=== PATIENT | male | born 1955 | race Caucasian/White ===

== ENCOUNTER 2018-10-12 15:23 | Inpatient (IN) | payer MEDICARE ==
[2018-10-12] MEDS: LIDOCAINE 1%/EPI (MDV) 50 ML INJ INJ (16:00)
[2018-10-12 16:48] LABS: ADD MAN DIFF? NO
[2018-10-12 16:51] LABS: BASOPHIL # 0.1 10^3/ul (0.0-0.1); BASOPHILS % 0.5 % (0.0-2.0); EOSINOPHILS # 0.1 10^3/ul (0.0-0.5); EOSINOPHILS % 0.3 % (0.0-7.0); HEMATOCRIT 31.2 % (42.0-52.0); LYMPHOCYTES # 1.5 10^3/ul (0.8-2.9); LYMPHOCYTES % 8.8 % (15.0-51.0); MEAN CORPUSCULAR HEMOGLOBIN 29.2 pg (29.0-33.0); MEAN CORPUSCULAR HGB CONC 32.1 g/dl (32.0-37.0); MEAN PLATELET VOLUME 9.1 fl (7.4-10.4); MONOCYTE # 1.1 10^3/ul (0.3-0.9); MONOCYTES % 6.7 % (0.0-11.0); NEUTROPHIL # 13.3 10^3/ul (1.6-7.5); NEUTROPHILS % 79.7 % (39.0-77.0); NUCLEATED RED BLOOD CELLS% 0.1 /100WBC (0.0-0.0); PLATELET COUNT 345 10^3/UL (140-415); RED BLOOD COUNT 3.43 10^6/ul (4.70-6.10)
[2018-10-12 16:51] LABS: WHITE BLOOD COUNT 16.6 10^3/ul (4.8-10.8)
[2018-10-12] MEDS: DIPHTH/TET/ACEL PERTUSS (ADULT) 0.5 ML VIAL IM* (16:51)
[2018-10-12] MEDS: LIDOCAINE 1%/EPI 30 ML INJ INJ (17:00)
[2018-10-12 17:08] LABS: ANION GAP 6 (5-13); BLOOD UREA NITROGEN 17 mg/dl (7-20); CALCIUM 8.4 mg/dl (8.4-10.2); CARBON DIOXIDE 25 mmol/L (21-31); CHLORIDE 106 mmol/L (97-110); CREATININE 1.13 mg/dl (0.61-1.24); Estimated GFR > 60 mL/min (>60); GLUCOSE 109 mg/dl (70-220); POTASSIUM 4.2 mmol/L (3.5-5.1); SODIUM 137 mmol/L (135-144)
[2018-10-12 17:10] LABS: INR 0.95; PROTIME 12.8 Sec (11.9-14.9)
[2018-10-12] MEDS: morphine 4 MG/ML VIAL IV ×2 (17:38→17:42)
[2018-10-12] MEDS: ONDANSETRON 4 MG INJ IV (17:38)
[2018-10-12] MEDS ORDERED: HYDROmorphONE 1 MG/ML SYG (17:40)
[2018-10-12] MEDS: IOHEXOL 100 ML (18:04)
[2018-10-12] MEDS: SOD CHLORIDE 0.9% 100 ML (18:04)
[2018-10-12] MEDS: HYDROmorphONE 2 MG/ML SYG IV (19:05)
[2018-10-12] MEDS: HYDROmorphONE 0.5 MG/0.5 ML SYG IV (20:09)
[2018-10-12] MEDS ORDERED: ACETAMINOPHEN 325 MG TAB PO (20:30)
[2018-10-12] MEDS ORDERED: ONDANSETRON 4 MG INJ IV (20:30)
[2018-10-13] MEDS: HYDROCODONE/APAP (5/325) TAB PO (00:38)
[2018-10-13] MEDS: HYDROmorphONE 1 MG/ML SYG IV ×7 (01:42→22:22)
[2018-10-13] MEDS ORDERED: ACETAMINOPHEN 325 MG TAB PO (02:00)
[2018-10-13] MEDS ORDERED: NACL 0.9% 3 ML SYG IV (02:00)
[2018-10-13] MEDS ORDERED: ALBUTEROL/IPRATROPIUM (NEB) 3 ML AMP HHN (02:00)
[2018-10-13] MEDS ORDERED: ONDANSETRON 4 MG INJ IV (02:00)
[2018-10-13] MEDS ORDERED: NON-FORMULARY/PATIENT OWN MED (Temazepam* 30 MG) PO (02:00)
[2018-10-13] MEDS: ZOLPIDEM 5 MG TAB PO ×2 (03:06→22:22)
[2018-10-13 04:58] LABS: ADD MAN DIFF? NO
[2018-10-13 05:03] LABS: BASOPHILS % 0.2 % (0.0-2.0); EOSINOPHILS % 0.3 % (0.0-7.0); HEMATOCRIT 26.6 % (42.0-52.0); HEMOGLOBIN 8.4 g/dl (14.0-18.0); LYMPHOCYTES # 1.6 10^3/ul (0.8-2.9); LYMPHOCYTES % 15.6 % (15.0-51.0); MEAN CORPUSCULAR HEMOGLOBIN 28.8 pg (29.0-33.0); MEAN CORPUSCULAR HGB CONC 31.6 g/dl (32.0-37.0); MEAN CORPUSCULAR VOLUME 91.1 fl (82.0-101.0); MEAN PLATELET VOLUME 9.5 fl (7.4-10.4); MONOCYTES % 9.6 % (0.0-11.0); NEUTROPHIL # 7.5 10^3/ul (1.6-7.5); NEUTROPHILS % 71.4 % (39.0-77.0); NUCLEATED RED BLOOD CELLS% 0.2 /100WBC (0.0-0.0); PLATELET COUNT 307 10^3/UL (140-415); RED BLOOD COUNT 2.92 10^6/ul (4.70-6.10); RED CELL DISTRIBUTION WIDTH 17.2 % (11.5-14.5)
[2018-10-13 05:03] LABS: WHITE BLOOD COUNT 10.5 10^3/ul (4.8-10.8)
[2018-10-13 05:27] LABS: ALANINE AMINOTRANSFERASE 33 IU/L (13-69); ALBUMIN 3.1 g/dl (3.3-4.9); ALBUMIN/GLOBULIN RATIO 1.14; ALKALINE PHOSPHATASE 93 IU/L (42-121); ANION GAP 5 (5-13); ASPARTATE AMINO TRANSFERASE 35 IU/L (15-46); BLOOD UREA NITROGEN 16 mg/dl (7-20); CALCIUM 8.1 mg/dl (8.4-10.2); CARBON DIOXIDE 26 mmol/L (21-31); CHLORIDE 103 mmol/L (97-110); CREATININE 1.06 mg/dl (0.61-1.24); Estimated GFR > 60 mL/min (>60); GLUCOSE 131 mg/dl (70-220); MAGNESIUM 1.9 mg/dl (1.7-2.5); PHOSPHORUS 2.7 mg/dl (2.5-4.9); POTASSIUM 4.1 mmol/L (3.5-5.1); SODIUM 134 mmol/L (135-144); TOTAL PROTEIN 5.8 g/dl (6.1-8.1)
[2018-10-13] MEDS ORDERED: LOSARTAN 50 MG TAB PO (07:30)
[2018-10-13] MEDS: OXYCODONE/ACETAMINOPHEN (10/325) TAB PO (07:50)
[2018-10-13] MEDS: LOSARTAN 50 MG TAB PO (07:50)
[2018-10-13] MEDS: traZODone 50 MG TAB PO (08:57)
[2018-10-13] MEDS: TRIMETHOPRIM/SULFAMETHOX (DS) TAB PO ×2 (08:57→20:12)
[2018-10-13] MEDS: HEPARIN 5,000 UNIT/1 ML VIAL SC (08:59)
[2018-10-13] MEDS ORDERED: TRIMETHOPRIM/SULFAMETHOX (DS) TAB PO (09:00)
[2018-10-13] MEDS ORDERED: DOCUSATE SODIUM 100 MG CAP PO (12:00)
[2018-10-13] MEDS: HYDROCODONE/APAP (10/325) TAB PO ×2 (13:20→18:25)
[2018-10-14] MEDS: HYDROmorphONE 1 MG/ML SYG IV ×7 (01:13→20:29)
[2018-10-14 05:33] LABS: ADD MAN DIFF? NO
[2018-10-14 05:38] LABS: BASOPHILS % 0.3 % (0.0-2.0); EOSINOPHILS # 0.2 10^3/ul (0.0-0.5); EOSINOPHILS % 2.7 % (0.0-7.0); HEMATOCRIT 25.1 % (42.0-52.0); HEMOGLOBIN 7.8 g/dl (14.0-18.0); LYMPHOCYTES % 12.4 % (15.0-51.0); MEAN CORPUSCULAR HEMOGLOBIN 28.9 pg (29.0-33.0); MEAN CORPUSCULAR HGB CONC 31.1 g/dl (32.0-37.0); MEAN PLATELET VOLUME 9.6 fl (7.4-10.4); MONOCYTE # 0.6 10^3/ul (0.3-0.9); MONOCYTES % 7.9 % (0.0-11.0); NEUTROPHIL # 5.6 10^3/ul (1.6-7.5); NEUTROPHILS % 72.3 % (39.0-77.0); NUCLEATED RED BLOOD CELLS% 0.4 /100WBC (0.0-0.0); PLATELET COUNT 259 10^3/UL (140-415); RED CELL DISTRIBUTION WIDTH 17.1 % (11.5-14.5)
[2018-10-14 05:38] LABS: WHITE BLOOD COUNT 7.7 10^3/ul (4.8-10.8)
[2018-10-14 05:52] LABS: HEMOGLOBIN A1C 6.1 % (0-5.9)
[2018-10-14 06:43] LABS: ANION GAP 3 (5-13); BLOOD UREA NITROGEN 17 mg/dl (7-20); CALCIUM 7.5 mg/dl (8.4-10.2); CARBON DIOXIDE 28 mmol/L (21-31); CHLORIDE 98 mmol/L (97-110); CREATININE 1.33 mg/dl (0.61-1.24); Estimated GFR 54 mL/min (>60); GLUCOSE 98 mg/dl (70-220); MAGNESIUM 1.9 mg/dl (1.7-2.5); PHOSPHORUS 3.9 mg/dl (2.5-4.9); POTASSIUM 4.4 mmol/L (3.5-5.1); SODIUM 129 mmol/L (135-144)
[2018-10-14] MEDS: FAMOTIDINE 20 MG TAB PO (08:36)
[2018-10-14] MEDS: LOSARTAN 50 MG TAB PO (08:36)
[2018-10-14] MEDS: TRIMETHOPRIM/SULFAMETHOX (DS) TAB PO ×2 (08:36→20:28)
[2018-10-14] MEDS: HYDROCODONE/APAP (10/325) TAB PO ×3 (10:15→18:24)
[2018-10-14] MEDS: ENOXAPARIN 40 MG/0.4 ML SYG SC (11:18)
[2018-10-14] MEDS ORDERED: BISACODYL 10 MG SUPP PR (15:00)
[2018-10-14] MEDS: DOCUSATE SODIUM 100 MG CAP PO (20:28)
[2018-10-15] MEDS: HYDROmorphONE 1 MG/ML SYG IV ×6 (01:04→21:35)
[2018-10-15 05:21] LABS: ADD MAN DIFF? NO
[2018-10-15 05:32] LABS: WHITE BLOOD COUNT 7.4 10^3/ul (4.8-10.8)
[2018-10-15 05:32] LABS: ABNORMAL IP MESSAGE 1; BASOPHILS % 0.3 % (0.0-2.0); EOSINOPHILS # 0.2 10^3/ul (0.0-0.5); HEMATOCRIT 21.1 % (42.0-52.0); LYMPHOCYTES # 0.8 10^3/ul (0.8-2.9); LYMPHOCYTES % 10.1 % (15.0-51.0); MEAN CORPUSCULAR HEMOGLOBIN 29.6 pg (29.0-33.0); MEAN CORPUSCULAR HGB CONC 31.8 g/dl (32.0-37.0); MEAN CORPUSCULAR VOLUME 93.4 fl (82.0-101.0); MEAN PLATELET VOLUME 9.3 fl (7.4-10.4); MONOCYTE # 0.6 10^3/ul (0.3-0.9); MONOCYTES % 8.6 % (0.0-11.0); NEUTROPHIL # 5.5 10^3/ul (1.6-7.5); NEUTROPHILS % 74.4 % (39.0-77.0); NUCLEATED RED BLOOD CELLS% 0.3 /100WBC (0.0-0.0); PLATELET COUNT 211 10^3/UL (140-415); POSITIVE DIFF @See below; RED BLOOD COUNT 2.26 10^6/ul (4.70-6.10); RED CELL DISTRIBUTION WIDTH 16.7 % (11.5-14.5)
[2018-10-15 05:53] LABS: HEMOGLOBIN 6.7 g/dl (14.0-18.0)
[2018-10-15 06:04] LABS: ANION GAP 7 (5-13); BLOOD UREA NITROGEN 25 mg/dl (7-20); CALCIUM 7.2 mg/dl (8.4-10.2); CARBON DIOXIDE 26 mmol/L (21-31); CHLORIDE 96 mmol/L (97-110); CREATININE 2.62 mg/dl (0.61-1.24); Estimated GFR 25 mL/min (>60); GLUCOSE 103 mg/dl (70-220); POTASSIUM 4.7 mmol/L (3.5-5.1); SODIUM 129 mmol/L (135-144)
[2018-10-15 06:05] LABS: TROPONIN-I 0.023 ng/ml (0.000-0.120)
[2018-10-15 06:11] LABS: PHOSPHORUS 4.8 mg/dl (2.5-4.9)
[2018-10-15 07:47] LABS: ANISOCYTOSIS 1+ (0-0); BAND NEUTROPHILS #M 0.4 10^3/ul (0.0-0.6); BAND NEUTROPHILS % (M) 6 % (0-4); EOSINOPHILS % (M) 3 % (0-7); GIANT THROMBO% (M) 1 % (0-0); LYMPHOCYTES #M 1.2 10^3/ul (0.8-2.9); LYMPHOCYTES % (M) 17 % (15-51); MONOCYTE #M 0.2 10^3/ul (0.3-0.9); MONOCYTES % (M) 3 % (0-11); MYELOCYTES % (M) 1 % (0-0); PLATELET ESTIMATE NORMAL; POLYCHROMASIA 2+ (0-0); SEG NEUT #M 5.2 10^3/ul (1.6-7.5); SEGMENTED NEUTROPHILS (M) % 70 % (39-77); SMUDGE%M 2 % (0-0)
[2018-10-15] MEDS: ENOXAPARIN 30 MG/0.3 ML SYG SC (09:00)
[2018-10-15] MEDS: TRIMETHOPRIM/SULFAMETHOX (DS) TAB PO ×2 (09:25→20:20)
[2018-10-15] MEDS: DOCUSATE SODIUM 100 MG CAP PO ×2 (09:25→20:19)
[2018-10-15] MEDS: FAMOTIDINE 20 MG TAB PO (09:25)
[2018-10-15] MEDS: HYDROCODONE/APAP (10/325) TAB PO (09:25)
[2018-10-15] MEDS: SOD CHLORIDE 0.9% 1,000 ML IV ×2 (09:26→19:30)
[2018-10-15] MEDS: SOD CHLORIDE 0.9% 250 ML IV* (10:08)
[2018-10-15 11:15] LABS: SODIUM,URINE RANDOM 22 mmol/L (30-90)
[2018-10-15 12:54] LABS: IMMEDIATE SPIN CROSSMATCH 1 2
[2018-10-15 19:42] LABS: CREATININE,URINE RANDOM 115.45 mg/dl (20-370)
[2018-10-15 19:44] LABS: ADD UMIC YES; UR ASCORBIC ACID NEGATIVE (NEGATIVE); UR BILIRUBIN (Dip) NEGATIVE (NEGATIVE); UR BLOOD (Dip) 2+ mg/dL (NEGATIVE); UR CLARITY CLEAR (CLEAR); UR COLOR YELLOW (YELLOW); UR GLUCOSE (Dip) NEGATIVE (NEGATIVE); UR KETONES (Dip) NEGATIVE (NEGATIVE); UR LEUKOCYTE ESTERASE (Dip) NEGATIVE Leu/ul (NEGATIVE); UR NITRITE (Dip) NEGATIVE (NEGATIVE); UR RBC 9 /HPF (0-5); UR TOTAL PROTEIN (Dip) NEGATIVE (NEGATIVE); UR UROBILINOGEN (Dip) 2+ mg/dL (NEGATIVE); UR WBC 4 /HPF (0-5)
[2018-10-15 19:45] LABS: SODIUM,URINE RANDOM < 13 mmol/L (30-90)
[2018-10-16] MEDS: HYDROmorphONE 1 MG/ML SYG IV ×8 (00:37→21:52)
[2018-10-16] MEDS: SOD CHLORIDE 0.9% 1,000 ML IV (00:40)
[2018-10-16 06:01] LABS: ADD MAN DIFF? NO
[2018-10-16 06:14] LABS: ABNORMAL IP MESSAGE 1; BASOPHILS % 0.3 % (0.0-2.0); EOSINOPHILS # 0.2 10^3/ul (0.0-0.5); EOSINOPHILS % 3.4 % (0.0-7.0); HEMATOCRIT 26.7 % (42.0-52.0); HEMOGLOBIN 8.6 g/dl (14.0-18.0); LYMPHOCYTES # 0.5 10^3/ul (0.8-2.9); LYMPHOCYTES % 8.1 % (15.0-51.0); MEAN CORPUSCULAR HEMOGLOBIN 29.8 pg (29.0-33.0); MEAN CORPUSCULAR HGB CONC 32.2 g/dl (32.0-37.0); MEAN CORPUSCULAR VOLUME 92.4 fl (82.0-101.0); MEAN PLATELET VOLUME 9.2 fl (7.4-10.4); MONOCYTE # 0.5 10^3/ul (0.3-0.9); MONOCYTES % 7.9 % (0.0-11.0); NEUTROPHIL # 4.6 10^3/ul (1.6-7.5); NEUTROPHILS % 77.9 % (39.0-77.0); PLATELET COUNT 234 10^3/UL (140-415); POSITIVE DIFF @See below; RED BLOOD COUNT 2.89 10^6/ul (4.70-6.10); RED CELL DISTRIBUTION WIDTH 16.2 % (11.5-14.5)
[2018-10-16 06:40] LABS: IRON 24 ug/dl (35-150)
[2018-10-16 06:49] LABS: % IRON SATURATION 9 % SAT (22-52); TOTAL IRON BINDING CAPACITY 272 ug/dl (241-421)
[2018-10-16 07:14] LABS: ALANINE AMINOTRANSFERASE 32 IU/L (13-69); ALBUMIN 2.9 g/dl (3.3-4.9); ALBUMIN/GLOBULIN RATIO 1.11; ALKALINE PHOSPHATASE 92 IU/L (42-121); ANION GAP 3 (5-13); ASPARTATE AMINO TRANSFERASE 38 IU/L (15-46); BILIRUBIN,INDIRECT 0.9 mg/dl (0-1.1); BILIRUBIN,TOTAL 0.9 mg/dl (0.2-1.3); BLOOD UREA NITROGEN 26 mg/dl (7-20); CALCIUM 7.5 mg/dl (8.4-10.2); CARBON DIOXIDE 28 mmol/L (21-31); CHLORIDE 102 mmol/L (97-110); CREATININE 2.32 mg/dl (0.61-1.24); Estimated GFR 29 mL/min (>60); GLUCOSE 92 mg/dl (70-220); SODIUM 133 mmol/L (135-144); TOTAL PROTEIN 5.5 g/dl (6.1-8.1)
[2018-10-16 07:58] LABS: FERRITIN 67.2 ng/ml (11.1-264.0)
[2018-10-16] MEDS: FAMOTIDINE 20 MG TAB PO (08:38)
[2018-10-16] MEDS: TRIMETHOPRIM/SULFAMETHOX (DS) TAB PO ×2 (08:38→20:56)
[2018-10-16] MEDS: DOCUSATE SODIUM 100 MG CAP PO (08:38)
[2018-10-16] MEDS: BISACODYL (EC) 5 MG TAB PO (08:38)
[2018-10-16] MEDS: HYDROCODONE/APAP (10/325) TAB PO (08:39)
[2018-10-16] MEDS: ENOXAPARIN 30 MG/0.3 ML SYG SC (08:40)
[2018-10-16] MEDS ORDERED: OXYCODONE/ACETAMINOPHEN (5/325) TAB PO (09:30)
[2018-10-16] MEDS: OXYCODONE/ACETAMINOPHEN (10/325) TAB PO ×2 (10:28→15:03)
[2018-10-16] MEDS: SENNA/DOCUSATE NA (8.6MG/50MG) TAB PO ×2 (12:35→20:56)
[2018-10-16] MEDS: SOD FERRIC GLUC COMPLX 125 MG in SOD CHLORIDE 0.9% 100 ML IVPB (12:35)
[2018-10-16] MEDS: POLYETHYLENE GLYCOL 17 GM PACKET PO (12:35)
[2018-10-16] MEDS: ZOLPIDEM 5 MG TAB PO (23:01)
[2018-10-17] MEDS: HYDROmorphONE 1 MG/ML SYG IV ×6 (01:24→17:32)
[2018-10-17 05:03] LABS: ADD MAN DIFF? NO
[2018-10-17 05:11] LABS: ABNORMAL IP MESSAGE 1; BASOPHILS % 0.3 % (0.0-2.0); EOSINOPHILS # 0.2 10^3/ul (0.0-0.5); HEMATOCRIT 29.1 % (42.0-52.0); HEMOGLOBIN 9.3 g/dl (14.0-18.0); LYMPHOCYTES # 0.5 10^3/ul (0.8-2.9); LYMPHOCYTES % 8.8 % (15.0-51.0); MEAN CORPUSCULAR HEMOGLOBIN 29.1 pg (29.0-33.0); MEAN CORPUSCULAR VOLUME 90.9 fl (82.0-101.0); MEAN PLATELET VOLUME 8.8 fl (7.4-10.4); MONOCYTE # 0.5 10^3/ul (0.3-0.9); MONOCYTES % 7.8 % (0.0-11.0); NEUTROPHIL # 4.6 10^3/ul (1.6-7.5); NEUTROPHILS % 77.2 % (39.0-77.0); PLATELET COUNT 288 10^3/UL (140-415); POSITIVE DIFF @See below; RED CELL DISTRIBUTION WIDTH 16.4 % (11.5-14.5)
[2018-10-17 05:11] LABS: WHITE BLOOD COUNT 5.9 10^3/ul (4.8-10.8)
[2018-10-17 05:35] LABS: ANION GAP 4 (5-13); BLOOD UREA NITROGEN 19 mg/dl (7-20); CALCIUM 8.4 mg/dl (8.4-10.2); CARBON DIOXIDE 29 mmol/L (21-31); CHLORIDE 102 mmol/L (97-110); CREATININE 1.47 mg/dl (0.61-1.24); Estimated GFR 48 mL/min (>60); GLUCOSE 124 mg/dl (70-220); PHOSPHORUS 2.6 mg/dl (2.5-4.9); POTASSIUM 4.8 mmol/L (3.5-5.1); SODIUM 135 mmol/L (135-144)
[2018-10-17] MEDS ORDERED: LOSARTAN 50 MG TAB PO (07:30)
[2018-10-17] MEDS: SENNA/DOCUSATE NA (8.6MG/50MG) TAB PO (08:31)
[2018-10-17] MEDS: TRIMETHOPRIM/SULFAMETHOX (DS) TAB PO (08:31)
[2018-10-17] MEDS: FAMOTIDINE 20 MG TAB PO (08:32)
[2018-10-17] MEDS: POLYETHYLENE GLYCOL 17 GM PACKET PO (08:32)
[2018-10-17] MEDS: ENOXAPARIN 30 MG/0.3 ML SYG SC (08:34)
[2018-10-17] MEDS: OXYCODONE/ACETAMINOPHEN (10/325) TAB PO ×2 (12:40→16:42)
[2018-10-17] MEDS: SOD FERRIC GLUC COMPLX 125 MG in SOD CHLORIDE 0.9% 100 ML IVPB (12:40)
[2018-10-17 14:08] LABS: CREATININE, RANDOM URINE 108 mg/dL (20-320); MICROALBUMIN 1.9 mg/dL; MICROALBUMIN/CREATININE RATIO 18 (<30)
== END 2018-10-17 18:49 | DRG 552 ==
LOC: E/R 15:23 → MS1 20:17
PROC: 0HQ0XZZ Repair Scalp Skin, External Approach (ICD-10-PCS; principal; 2018-10-12)
PROC: 2W3FX1Z Immobilization of Left Hand using Splint (ICD-10-PCS; 2018-10-12)
PROC: 30233N1 Transfusion of Nonautologous Red Blood Cells into Peripheral Vein, Percutaneous Approach (ICD-10-PCS; 2018-10-15)
DX: S12.190A Other displaced fracture of second cervical vertebra, initial encounter for closed fracture (principal); S22.010A Wedge compression fracture of first thoracic vertebra, initial encounter for closed fracture; N17.9 Acute kidney failure, unspecified; E87.1 Hypo-osmolality and hyponatremia; Z68.41 Body mass index [BMI] 40.0-44.9, adult; E66.01 Morbid (severe) obesity due to excess calories; I10 Essential (primary) hypertension; M06.9 Rheumatoid arthritis, unspecified; D72.829 Elevated white blood cell count, unspecified; M25.561 Pain in right knee; S01.01XA Laceration without foreign body of scalp, initial encounter; Z96.651 Presence of right artificial knee joint; S62.651A Nondisplaced fracture of middle phalanx of left index finger, initial encounter for closed fracture; S62.515A Nondisplaced fracture of proximal phalanx of left thumb, initial encounter for closed fracture; R62.7 Adult failure to thrive; L08.89 Other specified local infections of the skin and subcutaneous tissue; D50.9 Iron deficiency anemia, unspecified; I89.0 Lymphedema, not elsewhere classified; Z87.11 Personal history of peptic ulcer disease; W10.8XXA Fall (on) (from) other stairs and steps, initial encounter
CPT/HCPCS: 36430; 70450; 70498; 71045; 72040; 72125; 72141; 73130-LT; 73562; 76775; 80048; 80053; 81001; 81003; 82043; 82306; 82728; 83036; 83540; 83735; 84100; 84155; 84300; 84443; 84484; 85025; 85610; 86850; 86900; 86901; 86920; 89190; 90471; 90715; 93005; 96374; 96375; 96376; 97110; 97163; 97165; 97530; 99285-25

== ENCOUNTER 2018-10-17 19:25 | Inpatient (IN) | payer MEDICARE ==
[2018-10-17] MEDS ORDERED: BISACODYL (EC) 5 MG TAB PO (21:30)
[2018-10-17] MEDS ORDERED: ACETAMINOPHEN 325 MG TAB PO (21:30)
[2018-10-17] MEDS ORDERED: BISACODYL 10 MG SUPP PR (21:30)
[2018-10-17] MEDS ORDERED: OXYCODONE/ACETAMINOPHEN (5/325) TAB PO (22:00)
[2018-10-17] MEDS: HYDROmorphONE 1 MG/ML SYG IV (22:18)
[2018-10-17] MEDS: SENNA/DOCUSATE NA (8.6MG/50MG) TAB PO (22:18)
[2018-10-17] MEDS: TRIMETHOPRIM/SULFAMETHOX (DS) TAB PO (22:18)
[2018-10-17 23:11] LABS: ADD UMIC YES; UR ASCORBIC ACID NEGATIVE (NEGATIVE); UR BILIRUBIN (Dip) NEGATIVE (NEGATIVE); UR BLOOD (Dip) NEGATIVE (NEGATIVE); UR CLARITY CLEAR (CLEAR); UR COLOR YELLOW (YELLOW); UR GLUCOSE (Dip) NEGATIVE (NEGATIVE); UR KETONES (Dip) NEGATIVE (NEGATIVE); UR LEUKOCYTE ESTERASE (Dip) TRACE Leu/ul (NEGATIVE); UR NITRITE (Dip) NEGATIVE (NEGATIVE); UR RBC 5 /HPF (0-5); UR SPECIFIC GRAVITY (Dip) 1.016 (1.003-1.030); UR TOTAL PROTEIN (Dip) NEGATIVE (NEGATIVE); UR UROBILINOGEN (Dip) 2+ mg/dL (NEGATIVE); UR WBC 3 /HPF (0-5)
[2018-10-18] MEDS: HYDROmorphONE 1 MG/ML SYG IV ×6 (01:48→22:27)
[2018-10-18] MEDS ORDERED: LACTULOSE 30ML CUP PO (04:00)
[2018-10-18] MEDS ORDERED: BISACODYL 10 MG SUPP PR (04:00)
[2018-10-18 06:28] LABS: ADD MAN DIFF? NO
[2018-10-18 06:36] LABS: BASOPHILS % 0.3 % (0.0-2.0); EOSINOPHILS # 0.3 10^3/ul (0.0-0.5); EOSINOPHILS % 5.2 % (0.0-7.0); HEMATOCRIT 31.2 % (42.0-52.0); LYMPHOCYTES # 0.7 10^3/ul (0.8-2.9); LYMPHOCYTES % 10.9 % (15.0-51.0); MEAN CORPUSCULAR HEMOGLOBIN 29.1 pg (29.0-33.0); MEAN CORPUSCULAR HGB CONC 32.1 g/dl (32.0-37.0); MEAN CORPUSCULAR VOLUME 90.7 fl (82.0-101.0); MEAN PLATELET VOLUME 8.7 fl (7.4-10.4); MONOCYTE # 0.6 10^3/ul (0.3-0.9); MONOCYTES % 10.2 % (0.0-11.0); NEUTROPHIL # 4.1 10^3/ul (1.6-7.5); NEUTROPHILS % 68.5 % (39.0-77.0); PLATELET COUNT 303 10^3/UL (140-415); RED BLOOD COUNT 3.44 10^6/ul (4.70-6.10); RED CELL DISTRIBUTION WIDTH 16.4 % (11.5-14.5)
[2018-10-18 06:53] LABS: ALANINE AMINOTRANSFERASE 25 IU/L (13-69); ALBUMIN 3.4 g/dl (3.3-4.9); ALBUMIN/GLOBULIN RATIO 1.13; ALKALINE PHOSPHATASE 114 IU/L (42-121); ANION GAP 4 (5-13); ASPARTATE AMINO TRANSFERASE 33 IU/L (15-46); BILIRUBIN,INDIRECT 1.1 mg/dl (0-1.1); BILIRUBIN,TOTAL 1.1 mg/dl (0.2-1.3); BLOOD UREA NITROGEN 15 mg/dl (7-20); CALCIUM 8.8 mg/dl (8.4-10.2); CARBON DIOXIDE 30 mmol/L (21-31); CHLORIDE 101 mmol/L (97-110); CREATININE 1.25 mg/dl (0.61-1.24); Estimated GFR 58 mL/min (>60); GLUCOSE 103 mg/dl (70-220); POTASSIUM 4.8 mmol/L (3.5-5.1); SODIUM 135 mmol/L (135-144); TOTAL PROTEIN 6.4 g/dl (6.1-8.1)
[2018-10-18] MEDS: SENNA/DOCUSATE NA (8.6MG/50MG) TAB PO ×2 (09:12→22:28)
[2018-10-18] MEDS: FAMOTIDINE 20 MG TAB PO (09:12)
[2018-10-18] MEDS: POLYETHYLENE GLYCOL 17 GM PACKET PO (09:12)
[2018-10-18] MEDS: TRIMETHOPRIM/SULFAMETHOX (DS) TAB PO ×2 (09:12→22:28)
[2018-10-18] MEDS: ENOXAPARIN 30 MG/0.3 ML SYG SC (09:20)
[2018-10-18] MEDS: SOD FERRIC GLUC COMPLX 125 MG in SOD CHLORIDE 0.9% 100 ML IVPB (13:49)
[2018-10-18] MEDS: METOPROLOL (XL) 25 MG TAB PO (14:43)
[2018-10-18] MEDS: ZOLPIDEM 5 MG TAB PO (23:00)
[2018-10-19] MEDS: HYDROmorphONE 1 MG/ML SYG IV ×4 (06:53→20:47)
[2018-10-19] MEDS: ENOXAPARIN 30 MG/0.3 ML SYG SC (08:51)
[2018-10-19] MEDS: SENNA/DOCUSATE NA (8.6MG/50MG) TAB PO ×2 (08:52→20:44)
[2018-10-19] MEDS: FAMOTIDINE 20 MG TAB PO (08:52)
[2018-10-19] MEDS: TRIMETHOPRIM/SULFAMETHOX (DS) TAB PO ×2 (08:53→20:44)
[2018-10-19] MEDS: METOPROLOL (XL) 25 MG TAB PO (08:53)
[2018-10-19] MEDS: POLYETHYLENE GLYCOL 17 GM PACKET PO (08:59)
[2018-10-19] MEDS: AMLODIPINE 5 MG TAB PO (09:21)
[2018-10-19] MEDS: MAGNESIUM HYDROXIDE 30ML CUP PO (09:21)
[2018-10-19] MEDS: SOD FERRIC GLUC COMPLX 125 MG in SOD CHLORIDE 0.9% 100 ML IVPB (12:54)
[2018-10-19] MEDS: MUPIROCIN 2% 22 GM OINT TOP ×2 (12:55→20:45)
[2018-10-20] MEDS: HYDROmorphONE 1 MG/ML SYG IV ×6 (00:18→23:20)
[2018-10-20] MEDS: ZOLPIDEM 5 MG TAB PO ×2 (00:47→21:57)
[2018-10-20] MEDS: FAMOTIDINE 20 MG TAB PO (08:08)
[2018-10-20] MEDS: TRIMETHOPRIM/SULFAMETHOX (DS) TAB PO ×2 (08:08→20:11)
[2018-10-20] MEDS: OXYCODONE/ACETAMINOPHEN (10/325) TAB PO ×2 (08:09→14:32)
[2018-10-20] MEDS: METOPROLOL (XL) 25 MG TAB PO (08:09)
[2018-10-20] MEDS: AMLODIPINE 5 MG TAB PO ×2 (08:09→11:17)
[2018-10-20] MEDS: SENNA/DOCUSATE NA (8.6MG/50MG) TAB PO ×2 (08:09→20:11)
[2018-10-20 08:12] LABS: ANION GAP 6 (5-13); BLOOD UREA NITROGEN 15 mg/dl (7-20); CALCIUM 8.6 mg/dl (8.4-10.2); CARBON DIOXIDE 28 mmol/L (21-31); CHLORIDE 103 mmol/L (97-110); CREATININE 1.12 mg/dl (0.61-1.24); Estimated GFR > 60 mL/min (>60); GLUCOSE 97 mg/dl (70-220); MAGNESIUM 1.9 mg/dl (1.7-2.5); PHOSPHORUS 3.5 mg/dl (2.5-4.9); POTASSIUM 4.3 mmol/L (3.5-5.1); SODIUM 137 mmol/L (135-144)
[2018-10-20] MEDS: ENOXAPARIN 30 MG/0.3 ML SYG SC (08:15)
[2018-10-20] MEDS: AMMONIUM LACTATE 12% 225 GM LOT TOP (08:20)
[2018-10-20] MEDS: CLOTRIMAZOLE 1% 30 GM CR TOP (08:20)
[2018-10-20] MEDS: MUPIROCIN 2% 22 GM OINT TOP ×2 (08:24→20:10)
[2018-10-20] MEDS: POLYETHYLENE GLYCOL 17 GM PACKET PO (08:25)
[2018-10-20] MEDS: SOD FERRIC GLUC COMPLX 125 MG in SOD CHLORIDE 0.9% 100 ML IVPB (14:30)
[2018-10-21] MEDS: HYDROmorphONE 1 MG/ML SYG IV ×6 (02:52→23:03)
[2018-10-21] MEDS: OXYCODONE/ACETAMINOPHEN (10/325) TAB PO (08:25)
[2018-10-21] MEDS: SENNA/DOCUSATE NA (8.6MG/50MG) TAB PO ×2 (08:56→21:55)
[2018-10-21] MEDS: AMLODIPINE 10 MG TAB PO (08:56)
[2018-10-21] MEDS: ENOXAPARIN 30 MG/0.3 ML SYG SC (08:56)
[2018-10-21] MEDS: FAMOTIDINE 20 MG TAB PO (08:56)
[2018-10-21] MEDS: TRIMETHOPRIM/SULFAMETHOX (DS) TAB PO ×2 (08:57→21:55)
[2018-10-21] MEDS: METOPROLOL (XL) 25 MG TAB PO (08:57)
[2018-10-21] MEDS: MUPIROCIN 2% 22 GM OINT TOP ×2 (08:57→21:55)
[2018-10-21] MEDS: POLYETHYLENE GLYCOL 17 GM PACKET PO (08:58)
[2018-10-21] MEDS: CLOTRIMAZOLE 1% 30 GM CR TOP (08:58)
[2018-10-21] MEDS: AMMONIUM LACTATE 12% 225 GM LOT TOP (08:58)
[2018-10-21] MEDS: predniSONE 2.5 MG TAB PO (17:28)
[2018-10-21] MEDS: ZOLPIDEM 5 MG TAB PO (21:55)
[2018-10-22] MEDS: ZOLPIDEM 5 MG TAB PO ×2 (01:00→21:29)
[2018-10-22] MEDS: OXYCODONE/ACETAMINOPHEN (10/325) TAB PO ×2 (01:01→14:46)
[2018-10-22] MEDS: HYDROmorphONE 1 MG/ML SYG IV ×7 (02:04→22:46)
[2018-10-22 06:54] LABS: ADD MAN DIFF? NO
[2018-10-22 06:57] LABS: ABNORMAL IP MESSAGE 1; BASOPHILS % 0.5 % (0.0-2.0); EOSINOPHILS # 0.4 10^3/ul (0.0-0.5); EOSINOPHILS % 4.6 % (0.0-7.0); HEMATOCRIT 29.8 % (42.0-52.0); HEMOGLOBIN 9.5 g/dl (14.0-18.0); LYMPHOCYTES # 1.2 10^3/ul (0.8-2.9); LYMPHOCYTES % 15.6 % (15.0-51.0); MEAN CORPUSCULAR HEMOGLOBIN 29.6 pg (29.0-33.0); MEAN CORPUSCULAR HGB CONC 31.9 g/dl (32.0-37.0); MEAN CORPUSCULAR VOLUME 92.8 fl (82.0-101.0); MEAN PLATELET VOLUME 8.5 fl (7.4-10.4); MONOCYTE # 0.7 10^3/ul (0.3-0.9); MONOCYTES % 8.5 % (0.0-11.0); NEUTROPHIL # 5.2 10^3/ul (1.6-7.5); NEUTROPHILS % 64.9 % (39.0-77.0); PLATELET COUNT 347 10^3/UL (140-415); POSITIVE DIFF @See below; RED BLOOD COUNT 3.21 10^6/ul (4.70-6.10); RED CELL DISTRIBUTION WIDTH 16.8 % (11.5-14.5)
[2018-10-22 07:29] LABS: ALANINE AMINOTRANSFERASE 38 IU/L (13-69); ALBUMIN 3.2 g/dl (3.3-4.9); ALKALINE PHOSPHATASE 133 IU/L (42-121); ANION GAP 8 (5-13); ASPARTATE AMINO TRANSFERASE 37 IU/L (15-46); BILIRUBIN,INDIRECT 0.7 mg/dl (0-1.1); BILIRUBIN,TOTAL 0.7 mg/dl (0.2-1.3); BLOOD UREA NITROGEN 21 mg/dl (7-20); CALCIUM 8.6 mg/dl (8.4-10.2); CARBON DIOXIDE 26 mmol/L (21-31); CHLORIDE 102 mmol/L (97-110); CREATININE 1.18 mg/dl (0.61-1.24); Estimated GFR > 60 mL/min (>60); GLUCOSE 98 mg/dl (70-220); SODIUM 136 mmol/L (135-144); TOTAL PROTEIN 6.4 g/dl (6.1-8.1)
[2018-10-22 08:14] LABS: ERYTHROCYTE SEDIMENTATION RATE 100 mm/Hr (0-20)
[2018-10-22] MEDS: POLYETHYLENE GLYCOL 17 GM PACKET PO (08:37)
[2018-10-22] MEDS: TRIMETHOPRIM/SULFAMETHOX (DS) TAB PO ×2 (08:38→21:29)
[2018-10-22] MEDS: ENOXAPARIN 30 MG/0.3 ML SYG SC (08:38)
[2018-10-22] MEDS: AMLODIPINE 10 MG TAB PO (08:38)
[2018-10-22] MEDS: FAMOTIDINE 20 MG TAB PO (08:38)
[2018-10-22] MEDS: predniSONE 2.5 MG TAB PO ×2 (08:38→16:32)
[2018-10-22] MEDS: MUPIROCIN 2% 22 GM OINT TOP ×2 (08:39→21:29)
[2018-10-22] MEDS: METOPROLOL (XL) 25 MG TAB PO (08:39)
[2018-10-22] MEDS: SENNA/DOCUSATE NA (8.6MG/50MG) TAB PO ×2 (08:39→21:00)
[2018-10-22] MEDS: CLOTRIMAZOLE 1% 30 GM CR TOP (08:39)
[2018-10-22] MEDS: AMMONIUM LACTATE 12% 225 GM LOT TOP (08:40)
[2018-10-22] MEDS: ERGOCALCIFEROL 50,000 UNIT CAP PO (10:16)
[2018-10-22] MEDS: SOD FERRIC GLUC COMPLX 125 MG in SOD CHLORIDE 0.9% 100 ML IVPB (12:37)
[2018-10-22] MEDS: MAGNESIUM HYDROXIDE 30ML CUP PO (16:44)
[2018-10-23] MEDS: HYDROmorphONE 1 MG/ML SYG IV ×4 (06:43→21:54)
[2018-10-23] MEDS: OXYCODONE/ACETAMINOPHEN (10/325) TAB PO ×2 (08:13→16:44)
[2018-10-23] MEDS: TRIMETHOPRIM/SULFAMETHOX (DS) TAB PO ×2 (08:30→21:33)
[2018-10-23] MEDS: predniSONE 2.5 MG TAB PO ×2 (08:30→16:43)
[2018-10-23] MEDS: FAMOTIDINE 20 MG TAB PO (08:30)
[2018-10-23] MEDS: AMLODIPINE 10 MG TAB PO (08:31)
[2018-10-23] MEDS: METOPROLOL (XL) 25 MG TAB PO (08:31)
[2018-10-23] MEDS: POLYETHYLENE GLYCOL 17 GM PACKET PO (08:31)
[2018-10-23] MEDS: SENNA/DOCUSATE NA (8.6MG/50MG) TAB PO ×2 (08:32→21:39)
[2018-10-23] MEDS: ENOXAPARIN 40 MG/0.4 ML SYG SC (09:27)
[2018-10-23] MEDS: MUPIROCIN 2% 22 GM OINT TOP ×2 (09:30→21:33)
[2018-10-23] MEDS: CLOTRIMAZOLE 1% 30 GM CR TOP (09:30)
[2018-10-23] MEDS: AMMONIUM LACTATE 12% 225 GM LOT TOP (09:31)
[2018-10-23] MEDS: SOD FERRIC GLUC COMPLX 125 MG in SOD CHLORIDE 0.9% 100 ML IVPB (14:02)
[2018-10-23] MEDS: [UNRECOGNIZED DRUG - REMARK] XX (16:58)
[2018-10-23] MEDS: ZOLPIDEM 5 MG TAB PO (21:33)
[2018-10-24] MEDS: HYDROmorphONE 1 MG/ML SYG IV ×7 (01:13→21:55)
[2018-10-24 06:57] LABS: ABNORMAL IP MESSAGE 1; HEMATOCRIT 31.1 % (42.0-52.0); HEMOGLOBIN 9.8 g/dl (14.0-18.0); MEAN CORPUSCULAR HEMOGLOBIN 29.6 pg (29.0-33.0); MEAN CORPUSCULAR HGB CONC 31.5 g/dl (32.0-37.0); MEAN PLATELET VOLUME 8.7 fl (7.4-10.4); NUCLEATED RED BLOOD CELLS% 0.3 /100WBC (0.0-0.0); PLATELET COUNT 449 10^3/UL (140-415); POSITIVE DIFF @See below; RED BLOOD COUNT 3.31 10^6/ul (4.70-6.10); RED CELL DISTRIBUTION WIDTH 16.8 % (11.5-14.5)
[2018-10-24 06:57] LABS: WHITE BLOOD COUNT 7.5 10^3/ul (4.8-10.8)
[2018-10-24 07:09] LABS: ADD MAN DIFF? YES
[2018-10-24] MEDS: POLYETHYLENE GLYCOL 17 GM PACKET PO ×2 (09:00→10:05)
[2018-10-24] MEDS: FAMOTIDINE 20 MG TAB PO (09:59)
[2018-10-24] MEDS: SENNA/DOCUSATE NA (8.6MG/50MG) TAB PO ×2 (09:59→21:20)
[2018-10-24] MEDS: predniSONE 2.5 MG TAB PO ×2 (10:00→18:53)
[2018-10-24] MEDS: TRIMETHOPRIM/SULFAMETHOX (DS) TAB PO ×2 (10:01→21:20)
[2018-10-24 10:02] LABS: ANISOCYTOSIS 1+ (0-0); BAND NEUTROPHILS #M 0.3 10^3/ul (0.0-0.6); BAND NEUTROPHILS % (M) 4 % (0-4); BASOPHILS % (M) 1 % (0-2); EOSINOPHILS % (M) 3 % (0-7); GIANT THROMBO% (M) 1 % (0-0); LYMPHOCYTES #M 0.8 10^3/ul (0.8-2.9); LYMPHOCYTES % (M) 11 % (15-51); MONOCYTE #M 0.6 10^3/ul (0.3-0.9); MONOCYTES % (M) 9 % (0-11); MYELOCYTES #M 0.3 10^3/ul (0.0-0.0); MYELOCYTES % (M) 4 % (0-0); PLATELET ESTIMATE NORMAL; POIKILOCYTOSIS 1+ (0-0); POLYCHROMASIA 3+ (0-0); REACTIVE LYMPHOCYTES #M 0.1 10^3/ul (0.0-0.0); REACTIVE LYMPHOCYTES% (M) 2 % (0-0); SEGMENTED NEUTROPHILS (M) % 66 % (39-77); SMUDGE%M 4 % (0-0)
[2018-10-24] MEDS: ENOXAPARIN 40 MG/0.4 ML SYG SC (10:04)
[2018-10-24] MEDS: AMLODIPINE 10 MG TAB PO (10:05)
[2018-10-24] MEDS: METOPROLOL (XL) 25 MG TAB PO (10:31)
[2018-10-24] MEDS: CLOTRIMAZOLE 1% 30 GM CR TOP (10:33)
[2018-10-24] MEDS: MUPIROCIN 2% 22 GM OINT TOP ×2 (10:33→21:21)
[2018-10-24] MEDS: AMMONIUM LACTATE 12% 225 GM LOT TOP (10:34)
[2018-10-24] MEDS: OXYCODONE/ACETAMINOPHEN (10/325) TAB PO (10:41)
[2018-10-24] MEDS: SOD FERRIC GLUC COMPLX 125 MG in SOD CHLORIDE 0.9% 100 ML IVPB (14:42)
[2018-10-24] MEDS: ZOLPIDEM 5 MG TAB PO ×2 (21:20→23:56)
[2018-10-25] MEDS: HYDROmorphONE 1 MG/ML SYG IV ×6 (01:04→21:34)
[2018-10-25 07:36] LABS: CREATININE 0.87 mg/dl (0.61-1.24)
[2018-10-25 07:36] LABS: BLOOD UREA NITROGEN 16 mg/dl (7-20)
[2018-10-25] MEDS: AMLODIPINE 10 MG TAB PO (08:40)
[2018-10-25] MEDS: FAMOTIDINE 20 MG TAB PO (08:40)
[2018-10-25] MEDS: predniSONE 2.5 MG TAB PO ×2 (08:41→17:27)
[2018-10-25] MEDS: TRIMETHOPRIM/SULFAMETHOX (DS) TAB PO ×2 (08:41→21:35)
[2018-10-25] MEDS: METOPROLOL (XL) 25 MG TAB PO (08:41)
[2018-10-25] MEDS: SENNA/DOCUSATE NA (8.6MG/50MG) TAB PO ×2 (08:41→21:35)
[2018-10-25] MEDS: POLYETHYLENE GLYCOL 17 GM PACKET PO ×2 (08:42→09:00)
[2018-10-25] MEDS: OXYCODONE/ACETAMINOPHEN (10/325) TAB PO ×2 (08:42→17:27)
[2018-10-25] MEDS: ENOXAPARIN 40 MG/0.4 ML SYG SC (08:48)
[2018-10-25] MEDS: AMMONIUM LACTATE 12% 225 GM LOT TOP (08:49)
[2018-10-25] MEDS: MUPIROCIN 2% 22 GM OINT TOP ×2 (08:49→21:34)
[2018-10-25] MEDS: CLOTRIMAZOLE 1% 30 GM CR TOP (08:49)
[2018-10-25] MEDS: NEOMYC/POLYMYX/BACIT 30 GM OINT TOP (21:34)
[2018-10-25] MEDS: DOCUSATE SODIUM 100 MG CAP PO (21:35)
[2018-10-25] MEDS: ZOLPIDEM 5 MG TAB PO (21:35)
[2018-10-26] MEDS: HYDROmorphONE 1 MG/ML SYG IV ×3 (00:50→08:43)
[2018-10-26] MEDS: ZOLPIDEM 5 MG TAB PO ×2 (01:39→22:28)
[2018-10-26] MEDS: ENOXAPARIN 40 MG/0.4 ML SYG SC (08:29)
[2018-10-26] MEDS: DOCUSATE SODIUM 100 MG CAP PO ×2 (08:30→21:19)
[2018-10-26] MEDS: TRIMETHOPRIM/SULFAMETHOX (DS) TAB PO ×2 (08:31→21:19)
[2018-10-26] MEDS: SENNA/DOCUSATE NA (8.6MG/50MG) TAB PO ×2 (08:32→21:19)
[2018-10-26] MEDS: predniSONE 2.5 MG TAB PO ×2 (08:32→16:33)
[2018-10-26] MEDS: FAMOTIDINE 20 MG TAB PO (08:33)
[2018-10-26] MEDS: POLYETHYLENE GLYCOL 17 GM PACKET PO (08:45)
[2018-10-26] MEDS: MUPIROCIN 2% 22 GM OINT TOP (08:50)
[2018-10-26] MEDS: NEOMYC/POLYMYX/BACIT 30 GM OINT TOP ×2 (08:52→21:21)
[2018-10-26] MEDS: AMMONIUM LACTATE 12% 225 GM LOT TOP (08:54)
[2018-10-26] MEDS: CLOTRIMAZOLE 1% 30 GM CR TOP (08:54)
[2018-10-26] MEDS: AMLODIPINE 10 MG TAB PO (10:42)
[2018-10-26] MEDS: METOPROLOL (XL) 25 MG TAB PO (10:42)
[2018-10-26] MEDS: HYDROmorphONE 0.5 MG/0.5 ML SYG IV ×4 (12:17→23:36)
[2018-10-26] MEDS: OXYCODONE/ACETAMINOPHEN (10/325) TAB PO ×2 (17:27→21:19)
[2018-10-27] MEDS: HYDROmorphONE 0.5 MG/0.5 ML SYG IV ×5 (03:07→20:27)
[2018-10-27] MEDS: TRIMETHOPRIM/SULFAMETHOX (DS) TAB PO ×2 (09:40→20:07)
[2018-10-27] MEDS: predniSONE 2.5 MG TAB PO ×2 (09:40→17:21)
[2018-10-27] MEDS: DOCUSATE SODIUM 100 MG CAP PO ×2 (09:41→21:00)
[2018-10-27] MEDS: SENNA/DOCUSATE NA (8.6MG/50MG) TAB PO ×2 (09:42→21:00)
[2018-10-27] MEDS: METOPROLOL (XL) 25 MG TAB PO (09:42)
[2018-10-27] MEDS: FAMOTIDINE 20 MG TAB PO (09:42)
[2018-10-27] MEDS: POLYETHYLENE GLYCOL 17 GM PACKET PO (09:43)
[2018-10-27] MEDS: AMLODIPINE 10 MG TAB PO (09:43)
[2018-10-27] MEDS: CLOTRIMAZOLE 1% 30 GM CR TOP (09:44)
[2018-10-27] MEDS: NEOMYC/POLYMYX/BACIT 30 GM OINT TOP (09:44)
[2018-10-27] MEDS: AMMONIUM LACTATE 12% 225 GM LOT TOP (09:44)
[2018-10-27] MEDS: ENOXAPARIN 40 MG/0.4 ML SYG SC (09:47)
[2018-10-27] MEDS: OXYCODONE/ACETAMINOPHEN (10/325) TAB PO ×2 (11:48→22:30)
[2018-10-27] MEDS: MAGNESIUM HYDROXIDE 30ML CUP PO (20:07)
[2018-10-27] MEDS: ZOLPIDEM 5 MG TAB PO (21:15)
[2018-10-28] MEDS: HYDROmorphONE 0.5 MG/0.5 ML SYG IV ×7 (00:07→21:58)
[2018-10-28 07:55] LABS: BLOOD UREA NITROGEN 17 mg/dl (7-20)
[2018-10-28 07:55] LABS: CREATININE 0.99 mg/dl (0.61-1.24)
[2018-10-28] MEDS: POLYETHYLENE GLYCOL 17 GM PACKET PO (09:00)
[2018-10-28] MEDS: DOCUSATE SODIUM 100 MG CAP PO ×2 (09:34→20:11)
[2018-10-28] MEDS: TRIMETHOPRIM/SULFAMETHOX (DS) TAB PO ×2 (09:34→20:11)
[2018-10-28] MEDS: SENNA/DOCUSATE NA (8.6MG/50MG) TAB PO ×2 (09:34→20:11)
[2018-10-28] MEDS: predniSONE 2.5 MG TAB PO ×2 (09:34→16:36)
[2018-10-28] MEDS: METOPROLOL (XL) 25 MG TAB PO (09:34)
[2018-10-28] MEDS: FAMOTIDINE 20 MG TAB PO (09:35)
[2018-10-28] MEDS: OXYCODONE/ACETAMINOPHEN (10/325) TAB PO ×3 (09:35→20:59)
[2018-10-28] MEDS: AMLODIPINE 10 MG TAB PO (09:35)
[2018-10-28] MEDS: ENOXAPARIN 40 MG/0.4 ML SYG SC (09:37)
[2018-10-28] MEDS: CLOTRIMAZOLE 1% 30 GM CR TOP (09:38)
[2018-10-28] MEDS: AMMONIUM LACTATE 12% 225 GM LOT TOP (09:38)
[2018-10-28] MEDS: ZOLPIDEM 5 MG TAB PO (23:14)
[2018-10-29] MEDS: HYDROmorphONE 0.5 MG/0.5 ML SYG IV ×9 (01:53→23:50)
[2018-10-29] MEDS: POLYETHYLENE GLYCOL 17 GM PACKET PO (09:00)
[2018-10-29] MEDS: predniSONE 2.5 MG TAB PO ×2 (09:23→19:22)
[2018-10-29] MEDS: ENOXAPARIN 40 MG/0.4 ML SYG SC (09:23)
[2018-10-29] MEDS: DOCUSATE SODIUM 100 MG CAP PO ×2 (09:23→20:46)
[2018-10-29] MEDS: METOPROLOL (XL) 25 MG TAB PO (09:24)
[2018-10-29] MEDS: FAMOTIDINE 20 MG TAB PO (09:24)
[2018-10-29] MEDS: TRIMETHOPRIM/SULFAMETHOX (DS) TAB PO ×2 (09:24→20:46)
[2018-10-29] MEDS: SENNA/DOCUSATE NA (8.6MG/50MG) TAB PO ×2 (10:02→20:46)
[2018-10-29] MEDS: AMLODIPINE 10 MG TAB PO (10:02)
[2018-10-29] MEDS: AMMONIUM LACTATE 12% 225 GM LOT TOP (10:12)
[2018-10-29] MEDS: CLOTRIMAZOLE 1% 30 GM CR TOP (10:15)
[2018-10-29] MEDS: OXYCODONE/ACETAMINOPHEN (10/325) TAB PO ×2 (10:28→20:46)
[2018-10-29] MEDS: ZOLPIDEM 5 MG TAB PO (20:46)
[2018-10-30] MEDS: HYDROmorphONE 0.5 MG/0.5 ML SYG IV ×3 (03:28→13:35)
[2018-10-30] MEDS: SENNA/DOCUSATE NA (8.6MG/50MG) TAB PO (09:00)
[2018-10-30] MEDS: DOCUSATE SODIUM 100 MG CAP PO (09:00)
[2018-10-30] MEDS: POLYETHYLENE GLYCOL 17 GM PACKET PO (09:00)
[2018-10-30] MEDS: TRIMETHOPRIM/SULFAMETHOX (DS) TAB PO (09:34)
[2018-10-30] MEDS: predniSONE 2.5 MG TAB PO ×2 (09:35→17:08)
[2018-10-30] MEDS: FAMOTIDINE 20 MG TAB PO (09:36)
[2018-10-30] MEDS: OXYCODONE/ACETAMINOPHEN (10/325) TAB PO (09:36)
[2018-10-30] MEDS: AMLODIPINE 10 MG TAB PO (09:37)
[2018-10-30] MEDS: METOPROLOL (XL) 25 MG TAB PO (09:37)
[2018-10-30] MEDS: ENOXAPARIN 40 MG/0.4 ML SYG SC (09:45)
[2018-10-30] MEDS: AMMONIUM LACTATE 12% 225 GM LOT TOP (09:46)
[2018-10-30] MEDS: CLOTRIMAZOLE 1% 30 GM CR TOP (09:47)
[2018-10-30] MEDS ORDERED: PENDING SANTYL ORDER FOR WOUND CARE XX (10:00)
[2018-10-30] MEDS: BALSAM PERU/CASTOR OIL 60 GM TUBE TOP (13:42)
[2018-10-30] MEDS: HYDROmorphONE 2 MG TAB PO (17:09)
== END 2018-10-30 18:00 | DRG 560 ==
LOC: VRC 19:25
PROC: F07Z5ZZ Bed Mobility Treatment (ICD-10-PCS; principal; 2018-10-17)
PROC: F08Z2ZZ Grooming/Personal Hygiene Treatment (ICD-10-PCS; 2018-10-17)
DX: S12.100D Unspecified displaced fracture of second cervical vertebra, subsequent encounter for fracture with routine healing (principal); N17.9 Acute kidney failure, unspecified; E87.0 Hyperosmolality and hypernatremia; S22.019D Unspecified fracture of first thoracic vertebra, subsequent encounter for fracture with routine healing; S62.601D Fracture of unspecified phalanx of left index finger, subsequent encounter for fracture with routine healing; S62.603D Fracture of unspecified phalanx of left middle finger, subsequent encounter for fracture with routine healing; S01.01XD Laceration without foreign body of scalp, subsequent encounter; M06.9 Rheumatoid arthritis, unspecified; M48.02 Spinal stenosis, cervical region; I10 Essential (primary) hypertension; K27.9 Peptic ulcer, site unspecified, unspecified as acute or chronic, without hemorrhage or perforation; R52 Pain, unspecified; D50.9 Iron deficiency anemia, unspecified; F06.31 Mood disorder due to known physiological condition with depressive features; F06.8 Other specified mental disorders due to known physiological condition; R53.81 Other malaise; B35.1 Tinea unguium; Z96.651 Presence of right artificial knee joint; W10.9XXD Fall (on) (from) unspecified stairs and steps, subsequent encounter
CPT/HCPCS: 80048; 80053; 81001; 82565; 83735; 84100; 84520; 85025; 85651; 87081; 87086; 97110; 97112; 97163; 97167; 97530; 97535; 97542